=== PATIENT | female | born 1965 | race Caucasian/White ===

== ENCOUNTER 2017-08-09 00:35 | Emergency (ER) | payer SELFPAY ==
[~2017-08-09] VITALS: Ht 160 cm; Wt 81.5 kg
[~2017-08-09 00:35] MED LIST: AUGMENTIN875 MG PO; DOXYCYCLINE HY100 MG PO; FERROUS SULFAT325 MG PO; LACTINEX PACKE1 EACH PO; TOBREX5 ML BOTH EYES; TYLENOL REGULA325 MG PO
[2017-08-09] MEDS ORDERED: VALIUM5 MG PO (01:23)
[2017-08-09] MEDS ORDERED: ULTRAM50 MG PO (01:23)
[2017-08-09 01:42] VITALS: BP 128/76
== END 2017-08-09 01:40 | disposition home or self-care (01) ==
LOC: EME 00:35
DX: S29.011A Strain of muscle and tendon of front wall of thorax, initial encounter (principal); X58.XXXA Exposure to other specified factors, initial encounter
CPT/HCPCS: 99281; 99283